=== PATIENT | female | born 1955 | race Caucasian/White ===

== ENCOUNTER → 2025-02-19 | Day surgery (SDC) | payer MEDICARE, OTHER | LOC: SPEC 12:34 | PROVIDERS: ATTEND Internal Medicine Hematology & Oncology | PROC: 3E0 Administration, Physiological Systems and Anatomical Regions, Introduction (ICD-10-PCS; principal; 2025-02-19) | DX: Z45.2 Encounter for adjustment and management of vascular access device (principal); C18.8 Malignant neoplasm of overlapping sites of colon; C64.2 Malignant neoplasm of left kidney, except renal pelvis; D50.8 Other iron deficiency anemias; E11.9 Type 2 diabetes mellitus without complications; Z87.59 Personal history of other complications of pregnancy, childbirth and the puerperium; Z98.41 Cataract extraction status, right eye; Z98.42 Cataract extraction status, left eye; Z90.49 Acquired absence of other specified parts of digestive tract; Z88.8 Allergy status to other drugs, medicaments and biological substances; Z79.84 Long term (current) use of oral hypoglycemic drugs | CPT/HCPCS: 36598; J1642; Q9967 ==

== ENCOUNTER 2025-05-15 12:51 | Emergency (ER) | payer MEDICARE, OTHER ==
[2025-05-15 14:36] LABS: #Basophils 0.03 10x3/uL (0.0-0.2); #Eosinophils 0.12 10x3/uL (0.0-0.7); #Monocytes 0.55 10x3/uL (0.11-0.59); #Neutrophils 5.74 10x3/uL (1.40-6.50); %Basophils 0.4 % (0.0-1.0); %Eosinophils 1.6 % (0.0-10.0); %Lymphocytes 14.2 % (21.0-51.0); %Monocytes 7.3 % (0.0-10.0); %Neutrophils 75.8 % (42.0-75.0); Hematocrit 34.4 % (36.0-47.0); Hemoglobin 11.3 g/dL (12.0-16.0); Mean Corpuscular Hemoglobin 31.1 pg (27.0-31.0); Mean Corpuscular Volume 94.8 fL (78.0-98.0); Platelet Count 335 10x3/uL (130-400); Red Blood Cell (RBC) Count 3.63 mill/uL (4.20-5.40); White Blood Cell (WBC) Count 7.56 10x3/uL (4.8-10.8)
[2025-05-15 15:00] LABS: ALT (SGPT) 17 U/L (Less than 34); AST (SGOT) 24 U/L (11-34); Albumin 3.0 g/dL (3.1-4.5); Alkaline Phosphatase 59 U/L (40-110); Anion Gap 16 mmol/L (10-20); BUN (Urea Nitrogen) 34 mg/dL (9.8-20.1); Bilirubin, Total 0.4 mg/dL (0.3-1.2); Calc. Creatinine Clearance 0 mL/min (70-130); Calcium 8.8 mg/dL (7.8-10.44); Carbon Dioxide 21 mmol/L (23-31); Chloride 105 mmol/L (98-107); Globulin 2.9 g/dL (2.4-3.5); Glucose 119 mg/dL (80-115); Potassium 3.9 mmol/L (3.5-5.1); Sodium 138 mmol/L (136-145)
== END 2025-05-15 15:34 | disposition home or self-care (01) ==
LOC: ERS 12:51
DX: R60.0 Localized edema (principal); N17.9 Acute kidney failure, unspecified; E03.9 Hypothyroidism, unspecified; K21.9 Gastro-esophageal reflux disease without esophagitis; E78.00 Pure hypercholesterolemia, unspecified; E11.9 Type 2 diabetes mellitus without complications; Z79.899 Other long term (current) drug therapy; Z90.5 Acquired absence of kidney; Z55.6 Problems related to health literacy
CPT/HCPCS: 36415; 80053; 83880; 84484; 85025; 85379; 93005; 93970

== ENCOUNTER 2025-08-05 08:29 | Day surgery (SDC) | payer MEDICARE, OTHER ==
[2025-08-02 17:23] VITALS: BMI 22.4
[2025-08-05] MEDS ORDERED: Bupivacaine 0.25% HCL 30 ML VIAL ONE (10:58)
[2025-08-05] MEDS ORDERED: PROPOFOL 200 MG/20 ML VIAL ONE (12:05)
[2025-08-05] MEDS ORDERED: Lidocaine 1% (PF) 30 ML VIAL ONE (12:05)
== END 2025-08-05 13:20 | disposition home or self-care (01) ==
LOC: SDC 08:29
PROVIDERS: ATTEND Surgery
PROC: 0JPW0XZ Removal of Tunneled Vascular Access Device from Lower Extremity Subcutaneous Tissue and Fascia, Open Approach (ICD-10-PCS; principal; 2025-08-05)
DX: C18.4 Malignant neoplasm of transverse colon (principal); Z88.5 Allergy status to narcotic agent
CPT/HCPCS: 36590; J0665; J2003; J2704